=== PATIENT | male | born 1955 | race Caucasian/White ===

== ENCOUNTER 2020-12-17 17:53 | Emergency (ER) | payer MEDICARE, OTHER ==
[2020-12-17 19:39] LABS: BASOPHIL 0.3 % (0-2); EOSINOPHIL 0.3 % (0-7); HCT 37.4 % (42.0-52.0); HGB 13.3 g/dl (13.2-18.0); LYMPHOCYTE 10.2 % (15-48); MCH 34.4 pg (25.0-31.0); MCHC 35.6 g/dL (32.0-36.0); MCV 96.6 fL (78.0-100.0); MPV 10.8 fL (6.0-9.5); NEUTROPHIL 72.9 % (41-80); NRBC 0; PLT 95 K/uL (150-400); RBC 3.87 M/uL (4.70-6.00); RDW 12.2 % (11.5-14.0); WBC 3.8 K/uL (4.0-10.5)
[2020-12-17 19:45] LABS: BILIRUBIN NEGATIVE (NEGATIVE); BLOOD TRACE-INTACT Ery/uL (NEGATIVE); CLARITY CLEAR (CLEAR); COLOR YELLOW (YELLOW); GLUCOSE (U) NORMAL (NORMAL); LEUKOCYTES NEGATIVE Leu/uL (NEGATIVE); NITRITE NEGATIVE (NEGATIVE); PROTEIN 2+ mg/dL (NEGATIVE); SPECIFIC GRAVITY 1.015 (1.001-1.030)
[2020-12-17 19:48] LABS: AMORPHOUS URATES CRYSTALS TRACE; BACTERIA TRACE
[2020-12-17 19:55] LABS: BUN/CREAT RATIO (CALC) 15.1 RATIO; CREATININE 1.86 mg/dL (0.67-1.17); POTASSIUM 3.5 mmol/L (3.5-5.1)
== END 2020-12-17 21:37 | disposition home or self-care (01) ==
LOC: FER 17:53
PROVIDERS: Nurse Practitioner Family
DX: U07.1 COVID-19 (principal); E11.22 Type 2 diabetes mellitus with diabetic chronic kidney disease; N18.9 Chronic kidney disease, unspecified; E66.9 Obesity, unspecified; Z88.1 Allergy status to other antibiotic agents; Z88.8 Allergy status to other drugs, medicaments and biological substances
CPT/HCPCS: 36415; 71045; 80048; 81001; 85025; M0243; Q0244

== ENCOUNTER 2021-10-16 17:37 | Emergency (ER) | payer MEDICARE, OTHER | END 2021-10-16 19:53 | disposition home or self-care (01) | LOC: FER 17:37 | DX: S61.411A Laceration without foreign body of right hand, initial encounter (principal); I10 Essential (primary) hypertension; E11.9 Type 2 diabetes mellitus without complications; Z23 Encounter for immunization; Z79.4 Long term (current) use of insulin; Z79.82 Long term (current) use of aspirin; Z88.8 Allergy status to other drugs, medicaments and biological substances; W23.0XXA Caught, crushed, jammed, or pinched between moving objects, initial encounter; Y92.89 Other specified places as the place of occurrence of the external cause; Y99.0 Civilian activity done for income or pay | CPT/HCPCS: 73130; 90471; 90715 ==